=== PATIENT | female | born 1955 | race Caucasian/White ===

== ENCOUNTER 2018-09-11 10:04 | Inpatient (IN) ==
[2018-09-11] MEDS ORDERED: Naloxone 0.4 MG/ML INJ IVP PRN (11:13)
--- NOTE | 2018-09-11 11:27 | Electrophysiology H & P ---
Addendum entered and electronically signed by Goran Merchant MD 09/11/18 14:39: I have personally performed a face to face evaluation on this patient. I have reviewed and agree with the care plan. History and Exam by me shows: Here for sotalol titration. Addendum entered and electronically signed by Erwin Farley CNP 09/11/18 14:33: EKG shows sinus bradycardia, HR 52 bpm. QT 457/438. Reviewed with hayley Rainey to start sotalol therapy. Original Note: Date of Encounter: 09/11/18 Time of Encounter: 11:02 Assessment and Plan (1) Paroxysmal atrial fibrillation Current Visit: Yes Status: Acute The assessment and plan as outlined above was discussed with the patient and/or family members who expressed understanding and agreement. All questions were answered. Presents for sotalol therapy titration for c/o frequent recurrent afib. Recommended to have sotalol increased from 80 mg BID to 120 mg BID. Continue xarelto. Will check baseline EKG to monitor QTc and then daily. She denies missed doses of anticoagulation in the past 30 days. Continue home medications. Prior cardiac testing: TTE 04/28/18:LVEF 50%. Normal LV chamber size, wall thickness and function. Indeterminate diastolic function. Normal right ventricular structure and function. No evidence of pulmonary hypertension. No significant valvular dysfunction. Compared to prior report from 01/2016, EF has improved. TS 2016- normal. History of Present Illness Chief complaint: palpitations HPI: Ms. Bejarano is a 63 year old female with past medical history significant for mild CAD, tachycardia induced CMP that resolved, and atrial fibrillation who presents for planned admission to increase her sotalol therapy. She reports frequent elevated heart rates. Denies chest pain, palpitations, or SOB. Denies fatigue or palpitations. She is currently in NSR. Past Med Surg Social Fam HX - Past Medical History Medical history: atrial fibrillation, cardiomyopathy, coronary artery disease, other Psychiatric history: anxiety - Past Surgical History Surgical History: hysterectomy - Social History Smoking Status: Former smoker Smokeless Tobacco Status: No Alcohol use: occasionally Drug use: none - Family History Mother Family Member Ethnicity: Non- Living Status: Hx Family Cancer: Yes Father Family Member Ethnicity: Non- Living Status: Hx Family Cancer: Yes (kidney) Brother Living Status: Still Living Hx Family Endocrine Disorder: Yes (Diabetes mellitus) Sister Family Member Ethnicity: Non- Living Status: Hx Family Respiratory Disorders: Yes (copd) Medications and Allergies ALPRAZolam [Xanax 0.5 MG Tablet] 0.5 mg PO BID 08/01/16 [History] Atorvastatin [Lipitor] 40 mg PO HS 08/01/16 [History] Cholecalciferol (D-3) [Vitamin D] 1,000 unit PO DAILY 08/01/16 [History] [place]-3/Dha/Epa/Fish Oil [Fish Oil Dr 500 mg Softgel] 500 mg PO BID 08/01/16 [History] Rivaroxaban [Xarelto] 20 mg PO DAILY 08/01/16 [History] Sotalol [Betapace] 80 mg PO Q12H #60 tablet 08/03/16 [Rx] Allergy/AdvReac Type Severity Reaction Status Date / Time No Known Allergies Allergy Verified 08/29/17 11:55 All Systems Review: The remainder of the systems were reviewed and are negative Physical Examination Vital Signs, Last 4 Hours Temp Pulse Resp BP Pulse Ox 09/11/18 10:33 97.4 F L 52 15 166/96 100 General: Conversant, No Apparent Distress HEENT: Atraumatic, Normocephaly, Mucus Membranes Moist Neck: No JVD, Normal carotid pulses Cardiac: Reg Rate and Rhythm, Normal S1 and S2, No Murmur Lungs: Normal Breath Sounds, No Wheeze, Rales, Rhonchi Neuro: Alert and responsive, No focal deficits noted Abdomen: Soft, Non-Tender Skin: No rashes noted on visualized skin Musculoskeletal: No Chest Wall Tenderness Extremities: No Clubbing, No Cyanosis, No Edema, Normal Pulses Results - Imaging and Cardiology Echo: report reviewed - EKG Interpretation EKG results cardiology: personally reviewed
--- NOTE | 2018-09-11 14:38 | Electrocardiograph Report ---
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
[2018-09-11] MEDS: *HR* Rivaroxaban 10 MG TABLET PO SCH (16:38)
[2018-09-12] MEDS: Cholecalciferol (D-3) 1,000 UNIT TABLET PO SCH (09:01)
--- NOTE | 2018-09-12 10:48 | Cardiology Progress Note ---
Date of Encounter: 09/12/18 Time of Encounter: 09:00 Assessment and Plan (1) Paroxysmal atrial fibrillation Current Visit: Yes Status: Acute The assessment and plan as outlined above was discussed with the patient and/or family members who expressed understanding and agreement. All questions were answered. H/o PAF. Presents for sotalol therapy titration for c/o frequent recurrent afib. Recommended to have sotalol increased from 80 mg BID to 120 mg BID. S/p 2 doses. WIll need monitored for 5 doses. Continue xarelto. Baseline EKG-sinus bradycardia, HR 52 bpm. QT/QTc 457/438 ms. EKG 09/12/18- sinus bradycardia, HR 50 bpm, QT/QTC 459/431 ms Telemetry shows avg HR 54 bpm. Min HR 44 bpm at 10:34 pm. HR below 50 occur during nocturnal hours. No pauses seen. She is ambulating with-out dizziness or light headedness. She denies missed doses of anticoagulation in the past 30 days. Continue home medications. Prior cardiac testing: TTE 04/28/18:LVEF 50%. Normal LV chamber size, wall thickness and function. Indeterminate diastolic function. Normal right ventricular structure and function. No evidence of pulmonary hypertension. No significant valvular dysfunction. Compared to prior report from 01/2016, EF has improved. TSH 2016- normal. Discussion w patient/family: The assessment and plan as outlined above was discussed with the patient and/or family members who expressed understanding and agreement. All questions were answered. Thank you for involving us in the care of your patient. Please call with any questions. Subjective Principal diagnosis: atrial fibrillation Interval history: No complaints. Objective Vital Signs, Last 4 Hours Temp Pulse Resp BP Pulse Ox 09/12/18 10:06 97.4 F L 56 17 127/89 96 09/12/18 07:01 97.4 F L 54 15 123/74 97 General: Conversant, No Apparent Distress HEENT: Atraumatic, Normocephaly, Mucus Membranes Moist Neck: No JVD, Normal carotid pulses Cardiac: Reg Rate and Rhythm, Normal S1 and S2, No Murmur Lungs: Normal Breath Sounds, No Wheeze, Rales, Rhonchi Neuro: Alert and responsive, No focal deficits noted Abdomen: Soft, Non-Tender Skin: No rashes noted on visualized skin Musculoskeletal: No Chest Wall Tenderness Extremities: No Clubbing, No Cyanosis, No Edema, Normal Pulses Results - Imaging and Cardiology Echo: report reviewed - EKG Interpretation EKG results cardiology: personally reviewed - VTE Reasons for not Prescribing Prophylaxis: Not indicated-Anticoagulated or INR therapeutic Consult Discharge Plan - Plan Referrals: Bobby Michaels MD [Primary Care Provider] -
--- NOTE | 2018-09-12 15:37 | Electrocardiograph Report ---
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
[2018-09-12] MEDS: *HR* Rivaroxaban 10 MG TABLET PO SCH (17:21)
[2018-09-13 09:43] LABS: BUN/Creatinine Ratio 21 (6-26); Blood Urea Nitrogen 17 mg/dL (8-23); Calcium 9.6 mg/dL (8.6-10.3); Carbon Dioxide 30 mEq/L (23-29); Chloride 107 mEq/L (98-107); Glucose 69 mg/dL (70-105); Osmolality,Calculated 286 (280-300); Potassium 4.3 mEq/L (3.5-5.1); Sodium 138 mEq/L (136-145); eGFR For Non-African Americans > 60 (> 60)
[2018-09-13] MEDS: Cholecalciferol (D-3) 1,000 UNIT TABLET PO SCH (09:43)
--- NOTE | 2018-09-13 11:21 | Discharge Summary ---
Date of Encounter: 09/13/18 Time of Encounter: 11:00 - Discharge Diagnosis (1) Paroxysmal atrial fibrillation Priority: Primary Status: Acute - Hospital Course Hospital course: Ms. Bejarano is a 63 year old female with past medical history significant for atrial fibrillation, tachycardia induced CMP that resolved, mild non-obstructive CAD, and HLD who presents for sotalol therapy titration. This evening she will h ave her 5th dose of increased sotalol. Baseline EKG-sinus bradycardia, HR 52 bpm. QT/QTc 457/438 ms. EKG 09/12/18- sinus bradycardia, HR 50 bpm, QT/QTC 459/431 ms. EKG 09/13/18- sinus bradycardia, HR 48, QT/QTc 445/413 ms. Telemetry shows avg HR 52 bpm. Max HR 110 bpm, short run sinus tachycardia at 0530. Min HR 48 bpm at 0113. HR less than 50 occurred during nocturnal hours. She is ambulating without any symptoms. If her EKG after her 5th dose shows normal QTc she will be discharged this afternoon. She will continue xarelto for AC. - Time Spent with Patient Total time spent providing and/or coordinating discharge services: Greater than 30 minutes (1Hr d/c summary, med rec, d/c teaching.) - Discharge Medications Prescriptions: Sotalol [Betapace] 120 mg PO Q12HR #60 tablet Home Medications: ALPRAZolam [Xanax 0.5 MG Tablet] 0.5 mg PO BID 08/01/16 [History] Atorvastatin [Lipitor] 40 mg PO HS 08/01/16 [History] Cholecalciferol (D-3) [Vitamin D] 1,000 unit PO DAILY 08/01/16 [History] [place]-3/Dha/Epa/Fish Oil [Fish Oil Dr 500 mg Softgel] 500 mg PO BID 08/01/16 [History] Rivaroxaban [Xarelto] 20 mg PO DAILY 08/01/16 [History] Sotalol [Betapace] 80 mg PO Q12H #60 tablet 08/03/16 [Rx] Sotalol [Betapace] 120 mg PO Q12HR #60 tablet 09/13/18 [Rx] Allergies/Adverse Reactions: Allergy/AdvReac Type Severity Reaction Status Date / Time No Known Allergies Allergy Verified 08/29/17 11:55 Date of admission: 09/11/18 10:04 Primary care physician: Bobby Michaels MD Consults: none Discharging clinician: Erwin Farley Anticipated date of discharge: 09/13/18 Physical Examination Vital Signs, Last 4 Hours Resp BP Pulse Ox 09/13/18 10:39 14 146/81 96 General: Conversant, No Apparent Distress HEENT: Atraumatic, Normocephaly, Mucus Membranes Moist Neck: No JVD, Normal carotid pulses Cardiac: Reg Rate and Rhythm, Normal S1 and S2, No Murmur Lungs: Normal Breath Sounds, No Wheeze, Rales, Rhonchi Neuro: Alert and responsive, No focal deficits noted Abdomen: Soft, Non-Tender Skin: No rashes noted on visualized skin Musculoskeletal: No Chest Wall Tenderness Extremities: No Clubbing, No Cyanosis, No Edema, Normal Pulses - Patient Status Disposition: Home, Self-Care Condition: Good Overall status at discharge: patient is back to baseline - Discharge Instructions Instructions: Atrial Fibrillation (DC) Follow Up With: Bobby Michaels MD [Primary Care Provider] - 09/20/18 10:00 am Forms: Work/School Release - Diet and Activity Activity: increase activity as tolerated - VTE Reasons for not Prescribing Prophylaxis: Not indicated-Anticoagulated or INR therapeutic
--- NOTE | 2018-09-13 14:37 | Electrocardiograph Report ---
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
[2018-09-13 16:54] VITALS: BP 156/88
[2018-09-13] MEDS: *HR* Rivaroxaban 10 MG TABLET PO SCH (17:37)
--- NOTE | 2018-09-15 23:17 | Electrocardiograph Report ---
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
== END 2018-09-13 20:06 | disposition home or self-care (01) | DRG 950 ==
LOC: 2NENU 10:04
PROVIDERS: ADMIT Internal Medicine Clinical Cardiac Electrophysiology; ATTEND Internal Medicine Clinical Cardiac Electrophysiology